=== PATIENT | female | born 1990 | race Caucasian/White ===

== ENCOUNTER → 2019-06-01 | Outpatient (CLI) | payer OTHER, MEDICAID ==
--- NOTE | 2019-06-01 12:43 | REP ---
Right ankle series: Four views. History: Sprain. Injury in a fall 3 days prior. Findings: There is moderate diffuse soft tissue swelling about the lateral and medial aspect of the ankle. Lateral view shows anterior soft tissue swelling as well. Ankle mortise is intact however. No fractures seen. Impression: Diffuse moderate swelling. No fracture noted. Electronically Signed by Octavio Rodriguez MD 06/01/2019 12:35 P
== END ==
LOC: M LRY 12:22
PROVIDERS: ATTEND Physician Assistant
DX: S93.401A Sprain of unspecified ligament of right ankle, initial encounter (principal); Y92.9 Unspecified place or not applicable; Y93.9 Activity, unspecified

== ENCOUNTER 2020-07-18 10:24 | Emergency (ER) | payer MEDICAID, OTHER ==
[~2020-07-18] VITALS: Ht 162.6 cm; Wt 86.7 kg
[2020-07-18 11:34] LABS: HEMATOCRIT 43.4 % (36.0-47.0); HEMOGLOBIN 13.9 g/dl (12.0-15.5); MEAN CORPUSCULAR HEMOGLOBIN 29.1 pg (27.0-33.0); PLATELET COUNT, AUTOMATED 372 10^3/uL (150-450); RED BLOOD COUNT 4.77 10^6/uL (4.00-5.40); WHITE BLOOD COUNT 7.1 10^3/uL (4.0-10.0)
[2020-07-18 12:04] LABS: BILIRUBIN,DIRECT 0.2 MG/DL (0.0-0.2); BILIRUBIN,TOTAL 0.8 MG/DL (0.2-1.0); TOTAL PROTEIN 7.7 GM/DL (6.4-8.2)
--- NOTE | 2020-07-18 12:39 | REP ---
INDICATION: left flank pain, ro stone COMPARISON: None. TECHNIQUE: CT Scan of the abdomen and pelvis was performed without intravenous contrast. Sagittal and coronal reconstruction images performed. FINDINGS: Lung bases: There are minor fibro atelectatic changes. Liver: A low-density nodule in the left lobe of the liver superiorly is measuring water density and likely represents a cyst, approximately 1.7 cm in diameter. A smaller hypodensity in the right lobe about the same level measures 8 mm and may represent another small cyst, measuring close to water density. Gallbladder: Unremarkable. Spleen: Grossly unremarkable.. Adrenals: Normal. Pancreas: Grossly unremarkable.. Kidneys: Grossly unremarkable. No renal or ureteral calculus is seen and there is no hydroureteronephrosis. Small and large bowel: Grossly unremarkable.. Free fluid: None. Abdominal aorta: No aneurysm. Adenopathy: None. Appendix: Not inflamed. Osseous structures: Unremarkable. Pelvis: There is an IUD in the uterus. There is a cystic structure the right ovary which measures 3.6 cm in diameter. There appears to be a small focus of fat in the posterior aspect of the cyst measuring 5 mm in diameter. There also appears to be a tiny adjacent calcification in the cyst. Therefore I suspect this represents a dermoid cyst. IMPRESSION: Negative non-contrast CT abdomen and pelvis. <Electronically signed by Tevin Dill > 07/18/20 [id number]
[2020-07-18] MEDS ORDERED: IBUPROFEN 800 MG TAB PO ONE (13:00)
[2020-07-18 13:08] VITALS: BP 124/75
== END 2020-07-18 13:11 | disposition home or self-care (01) ==
LOC: M ED 10:24
DX: N83.201 Unspecified ovarian cyst, right side (principal); R31.9 Hematuria, unspecified; Z97.5 Presence of (intrauterine) contraceptive device

== ENCOUNTER → 2022-03-01 | Outpatient (REF) | payer OTHER, MEDICAID | LOC: M SFHCWAGY 13:11 | PROVIDERS: ATTEND Obstetrics & Gynecology | DX: Z01.419 Encounter for gynecological examination (general) (routine) without abnormal findings (principal) ==

== ENCOUNTER → 2022-03-07 | Outpatient (CLI) | payer OTHER | LOC: M WHC 07:57 | PROVIDERS: ATTEND Obstetrics & Gynecology | DX: D36.9 Benign neoplasm, unspecified site (principal) ==

== ENCOUNTER → 2022-07-10 | Outpatient (CLI) | payer MEDICAID, OTHER ==
[~2022-07-10] MED LIST: ESTA0.25
== END ==
LOC: M LABSMTC 10:20
PROVIDERS: ATTEND Anesthesiology
DX: Z01.818 Encounter for other preprocedural examination (principal); Z11.52 Encounter for screening for COVID-19

== ENCOUNTER 2022-07-15 12:01 | Day surgery (SDC) | payer OTHER ==
[~2022-07-15] VITALS: Ht 160 cm; Wt 97.5 kg
[~2022-07-15 12:01] MED LIST changes: +LIDOCAINE 2% 100MG/5ML SDV (FOR ANES.) As Ordered ONE; +LR 1,000 ML IV SCH; +MIDAZOLAM INJ 2MG/2ML VIAL (J2250 PER 1MG) As Ordered ONE; +ROCURONIUM BROMIDE 50 MG/5 ML VIAL As Ordered ONE; +fentaNYL 250 MCG/5 ML INJECTION As Ordered ONE; +propofoL 200 MG/20 ML VIAL As Ordered ONE
[2022-07-15 13:04] LABS: HEMATOCRIT 42.1 % (36.0-47.0); HEMOGLOBIN 13.9 g/dl (12.0-15.5); MEAN CORPUSCULAR HEMOGLOBIN 29.7 pg (27.0-33.0); PLATELET COUNT, AUTOMATED 469 10^3/uL (150-450); RED BLOOD COUNT 4.68 10^6/uL (4.00-5.40); WHITE BLOOD COUNT 8.4 10^3/uL (4.0-10.0)
[2022-07-15] MEDS ORDERED: BUPIVACAINE HCL 0.25% 10ML VIAL As Ordered ONE (13:47)
[2022-07-15] MEDS ORDERED: dexameTHASONE 4 MG/ML 1ML VIAL (J1100 PER 1MG) As Ordered ONE (13:56)
[2022-07-15] MEDS ORDERED: KETOROLAC 60MG 2ML VIAL As Ordered ONE (13:56)
[2022-07-15] MEDS ORDERED: ONDANSETRON 4MG 2ML VIAL As Ordered ONE (13:56)
[2022-07-15] MEDS ORDERED: LABETALOL 100MG/20ML VIAL As Ordered ONE (14:48)
[2022-07-15] MEDS ORDERED: ACETAMINOPHEN 1000MG 100ML IV BTL (OFIRMEV) (J0131 PER 10MG) As Ordered ONE (14:59)
[2022-07-15] MEDS ORDERED: SUGAMMADEX SODIUM 500 MG/5 ML VIAL (BRIDION) As Ordered ONE (14:59)
[2022-07-15] MEDS ORDERED: HYDROmorphone HCL 2MG/ML 1ML VIAL As Ordered ONE (15:12)
[2022-07-15] MEDS ORDERED: LR 1,000 ML IV SCH ×2 (16:20→16:25)
[2022-07-15] MEDS ORDERED: METOCLOPRAMIDE INJ 10MG/2ML VIAL (J2765 PER 1) IV PRN (16:20)
[2022-07-15] MEDS ORDERED: ONDANSETRON 4MG 2ML VIAL IV PRN ×2 (16:20→16:25)
[2022-07-15] MEDS ORDERED: oxyCODONE 5MG TAB PO PRN (16:20)
[2022-07-15] MEDS ORDERED: HYDROMORPHONE HCL 0.5 MG/ 0.5 ML SYRINGE (J1170 PER 1) IV PRN (16:20)
[2022-07-15] MEDS ORDERED: HYDROmorphone 4MG TABLET PO PRN (16:25)
[2022-07-15] MEDS ORDERED: HYDROmorphone 2 MG TAB PO PRN (16:25)
[2022-07-15] MEDS ORDERED: ACETAMINOPHEN 500 MG TAB PO PRN (16:25)
[2022-07-15] MEDS: fentaNYL 100 MCG/2 ML INJECTION IV PRN ×3 (16:27→16:40)
[2022-07-15 18:15] VITALS: BP 147/90
== END 2022-07-15 18:23 | disposition home or self-care (01) ==
LOC: M SDC 12:01
PROVIDERS: ATTEND Obstetrics & Gynecology
DX: N83.01 Follicular cyst of right ovary (principal); D27.0 Benign neoplasm of right ovary; E28.2 Polycystic ovarian syndrome; Z79.899 Other long term (current) drug therapy; Z79.3 Long term (current) use of hormonal contraceptives
CPT/HCPCS: 36415; 58662; 81025; 85027; 86850; 86900; 86901; 88304; 88305; J0131; J1100; J1170; J1885; J2250; J2405; J3010